=== PATIENT | female | born 1975 | race Caucasian/White ===

== ENCOUNTER 2016-09-03 11:25 | Emergency (ER) | payer SELFPAY ==
[2016-09-03 11:33] VITALS: BP 112/75; PULSE 98; TEMP 98; BMI 25.0
--- NOTE | 2016-09-03 11:51 | PDOC ---
History of Present Illness - General Chief Complaint: Vaginal Sxs Stated Complaint: VAGINAL PROBLEM Time Seen by Provider: 09/03/16 11:50 History Source: Patient Exam Limitations: No Limitations - History of Present Illness Initial Comments: CHIEF COMPLAINT: 41 y/o afebrile female with no significant PMH c/o itchy rash to vaginal area x 5 days. HISTORY OF PRESENT ILLNESS: The patient states about 1 month ago she had unprotected sex with a new partner. She states 5 days ago the rash developed and she admits it's itchy. She states it also fisher at times. She denies all other complaints. Vital signs on arrival are notable for pulse of 98. REVIEW OF SYSTEMS: GENERAL/CONSTITUTIONAL: No fever/chills. No weakness. No weight change. HEAD, EYES, EARS, NOSE AND THROAT: No change in vision. No ear pain or discharge. No sore throat. CARDIOVASCULAR: No chest pain or shortness of breath. RESPIRATORY: No cough, wheezing, or hemoptysis. GASTROINTESTINAL: No abd pain, nausea, vomiting, diarrhea. GENITOURINARY: No dysuria, frequency, or change in urination. MUSCULOSKELETAL: No joint or muscle swelling or pain. No neck or back pain. SKIN: Itchy rash with some burning to vaginal area. NEUROLOGIC: No headache, vertigo, loss of consciousness, or loss of sensation. PHYSICAL EXAM: GENERAL: The patient is awake, alert, and fully oriented, in no acute distress. HEAD: Normal with no signs of trauma. EXTREMITIES: Normal range of motion, no edema. VAGINAL: raised skin colored lesions along b/l labia minora. NEUROLOGICAL: Normal speech, normal gait. CN II-XII grossly intact. SKIN: Similar rash to vaginal rash on soles of feet and along arches of feet. Past History - Past Medical History Allergies/Adverse Reactions: Allergies Allergy/AdvReac Type Severity Reaction Status Date / Time No Known Allergies Allergy Verified 09/03/16 11:29 Home Medications: Ambulatory Orders Doxycycline Hyclate 100 mg PO BID #28 capsule 09/03/16 Valacyclovir HCl [Valtrex -] 1,000 mg PO BID #20 tablet 09/03/16 Asthma: Yes - Psycho/Social/Smoking Cessation Hx Anxiety: No Suicidal Ideation: No Smoking Status: No Smoking History: Never smoked Have you smoked in the past 12 months: Yes Number of Cigarettes Smoked Daily: 10 Information on smoking cessation initiated: No Hx Alcohol Use: No Drug/Substance Use Hx: No Substance Use Type: None *Physical Exam - Vital Signs Last Vital Signs Temp Pulse Resp BP Pulse Ox 98 F 98 H 18 112/75 100 09/03/16 11:30 09/03/16 11:30 09/03/16 11:30 09/03/16 11:30 09/03/16 11:30 Medical Decision Making - Medical Decision Making A/P: 41 y/o afebrile female with genital herpes vs syphillis She states this is the first time she's ever had this. Plan is as follows: 1. hcg 2. Herpes viral culture 3. RPR 4. GC/Chlamydia hcg - negative The patient does not want to wait for RPR result. We will call her with results. In the meantime will treat empirically for herpes. Will call an rx for valtrex for 1st episode of genital herpes. Instructed her to take entire course and no sexual intercourse until valtrex completed. Instructed her that all sexual partners in the future must use protection. Suggested she call Dr. Doran today to schedule a f/u appointment and return to the ER with any worsening or concerning symptoms. The patient verbalizes understanding of all instructions, has no further questions and is awaiting discharge. Lab called and first RPR is Positive Tried calling the patient on the number she provided but her mother informs me that she hasn't spoken to her daughter in months and doesn't think she has a phone. Called the pharmacy where I sent the prescription for valtrex and the patient has not arrived yet to pick it up. I instructed the pharmacist to have the patient call me here before giving her the medication. Sent rx for doxycycline for treatment of syphilis in case the patient does not call back or f/u at the clinic. Spoke with Zoraida at the [facility]. She is at [phone]. She states there is a clinic for free treatment of syphilis at [address] on the 2nd floor in [place]. She states it's open on Mondays and Fridays. She informs me that if they get the official results tomorrow someone from the [facility] will attempt to contact the patient at the address she provided. *DC/Admit/Observation/Transfer Diagnosis at time of Disposition: Herpes genitalis in women - Discharge Dispostion Disposition: HOME Condition at time of disposition: Good - Prescriptions Prescriptions: Doxycycline Hyclate 100 mg PO BID #28 capsule Valacyclovir HCl [Valtrex -] 1,000 mg PO BID #20 tablet - Referrals Referrals: Pam Doran MD [Staff Physician] - Call tomorrow - Patient Instructions Printed Discharge Instructions: DI for Genital Herpes Additional Instructions: Discharge Instructions: -A prescription has been sent to your pharmacy; please start it today and take for entire 10 days -Call Dr. Doran today to schedule a follow up appointment -Do not have sexual intercourse until you are done with your treatment -Make sure all of your sexual partners in the future use protection at all times. -Return to the ER with any worsening or concerning symptoms Print Language: [id number]
== END 2016-09-03 12:56 | disposition home or self-care (01) ==
LOC: JERFT 11:25
DX: A60.04 Herpesviral vulvovaginitis (principal)
CPT/HCPCS: 36415; 84703; 86593; 86780; 87255; 87491; 87591; 99281-25

== ENCOUNTER 2023-11-05 22:39 | Inpatient (IN) | payer OTHER ==
[2023-11-05 23:25] VITALS: BMI 25.4
[2023-11-06] MEDS ORDERED: LOPERAMIDE HCL 2 MG CAPSULE PO PRN (02:13)
[2023-11-06] MEDS ORDERED: NALOXONE HCL 0.4 MG/ML VIAL IM PRN (02:13)
[2023-11-06] MEDS ORDERED: BISMUTH SUBSALICYLATE 524 MG/30 ML PO PRN (02:13)
[2023-11-06] MEDS ORDERED: ONDANSETRON *ODT* 4 MG TABLET SL PRN (02:13)
[2023-11-06] MEDS ORDERED: BENZOCAINE/MENTHOL (CHLORASEPTIC ) LOZENGE MM PRN (02:13)
[2023-11-06] MEDS ORDERED: NALOXONE (NARCAN) HCL 4 MG/0.1 ML SPRAY NS PRN (02:13)
[2023-11-06] MEDS ORDERED: guaiFENesin 600 MG TABLET.ER (FP) PO PRN (02:13)
[2023-11-06] MEDS ORDERED: DICYCLOMINE HCL 10 MG CAPSULE PO PRN (02:13)
[2023-11-06] MEDS ORDERED: POLYETHYLENE GLYCOL (HEALTHYLAX) 3350 17 GM PACKET PO PRN (02:13)
[2023-11-06] MEDS ORDERED: BENZONATATE 200 MG CAPSULE PO PRN (02:13)
[2023-11-06] MEDS: methaDONE HCL 10 MG TABLET (FOR DETOX USE ONLY) PO ONE ×2 (02:54→11:30)
[2023-11-06] MEDS: PRENATAL VITAMINS W/ FOLIC ACID TABLET (FP) PO SCH (10:51)
[2023-11-06] MEDS: METHOCARBAMOL 500 MG TABLET PO PRN (10:51)
[2023-11-06] MEDS: IBUPROFEN 400 MG TABLET (FP) PO PRN (10:51)
[2023-11-06] MEDS: hydrOXYzine PAMOATE 25 MG CAPSULE (FP) PO PRN (10:51)
[2023-11-06] MEDS: cloNIDine HCL 0.1 MG TABLET PO PRN (20:34)
[2023-11-06] MEDS: THIAMINE 100 MG TABLET PO SCH (22:42)
[2023-11-06] MEDS: MELATONIN 5 MG TABLETS PO SCH (22:42)
[2023-11-07] MEDS: IBUPROFEN 600 MG TABLET (FP) PO PRN (03:42)
[2023-11-07 11:37] LABS: HEMOGLOBIN 12.6 GM/dL (10.7-15.3); MCH 28.3 pg (25.7-33.7); MCHC 34.1 g/dl (32.0-36.0); PLATELET COUNT 305 10^3/uL (134-434); RBC 4.46 M/mm3 (3.60-5.2); RDW 16.3 % (11.6-15.6); WHITE BLOOD COUNT 6.1 K/mm3 (4.0-10.0)
[2023-11-07 11:50] LABS: POTASSIUM 3.3 mmol/L (3.5-5.1)
[2023-11-07 12:01] LABS: BILIRUBIN,TOTAL 0.3 mg/dL (0.2-1); TOT PROT 6.3 g/dl (6.4-8.2)
[2023-11-07 12:03] LABS: CREATININE 0.7 mg/dL (0.55-1.3)
[2023-11-07 12:05] LABS: ALBUMIN 2.9 g/dl (3.4-5.0); BLOOD UREA NITROGEN 9.5 mg/dL (7-18); CALCIUM 8.3 mg/dL (8.5-10.1)
[2023-11-07] MEDS: POTASSIUM CHLORIDE ORAL LIQUID 20 MEQ/15 ML PO SCH (15:37)
[2023-11-07] MEDS: methaDONE HCL 10 MG TABLET PO ONE (15:37)
[2023-11-07] MEDS: MELATONIN 5 MG TABLETS PO SCH (22:14)
[2023-11-07] MEDS: ACETAMINOPHEN 325 MG TABLET (FP) PO PRN (22:16)
[2023-11-08] MEDS ORDERED: methaDONE HCL 10 MG TABLET (FOR DETOX USE ONLY) PO ONE (10:00)
[2023-11-08] MEDS: methaDONE 40 MG, methaDONE 10 MG PO ONE (10:36)
[2023-11-08] MEDS: MAG HYDROX/AL HYDROX/SIMETH 30 ML UNIT-DOSE CUP PO PRN (12:43)
[2023-11-08] MEDS: LIDOCAINE 4% PATCH TP SCH (13:30)
[2023-11-08] MEDS: valACYclovir HCL 500 MG TABLET (FP) PO SCH (22:31)
[2023-11-08] MEDS: LIDOCAINE PATCH REMOVAL MC SCH (23:16)
[2023-11-09] MEDS: methaDONE 40 MG, methaDONE 20 MG PO ONE (10:46)
[2023-11-09] MEDS: NICOTINE 14 MG/24 HOURS TOPICAL PATCH TD SCH (10:50)
[2023-11-10] MEDS ORDERED: methaDONE HCL 10 MG TABLET (FOR DETOX USE ONLY) PO ONE (10:00)
[2023-11-10] MEDS: methaDONE 40 MG, methaDONE 30 MG PO ONE (10:32)
[2023-11-10] MEDS: LORATADINE 10 MG TABLET PO SCH (12:06)
[2023-11-10] MEDS: GABAPENTIN 100 MG CAPSULE PO SCH (13:41)
[2023-11-10] MEDS: FLUTICASONE PROP 0.05% 16 GM NASAL SPRAY NS SCH (15:25)
[2023-11-11] MEDS: MAGNESIUM HYDROX 2400MG/30ML ORAL SUSPENSION 30 ML CUP PO PRN (05:00)
[2023-11-11] MEDS: methaDONE HCL 40 MG DISPERSABLE TABLET PO ONE (09:35)
[2023-11-11 10:16] VITALS: BP 114/64; PULSE 70; RESP 16; TEMP 97.7
== END 2023-11-11 12:30 | disposition home or self-care (01) | DRG 773 ==
LOC: YASAS 22:39 → Y6N 11-06 02:26
PROVIDERS: ADMIT Allergy & Immunology; ATTEND Surgery
PROC: HZ2ZZZZ Detoxification Services for Substance Abuse Treatment (ICD-10-PCS; principal; 2023-11-06)
DX: F11.23 Opioid dependence with withdrawal (principal); F14.20 Cocaine dependence, uncomplicated; F12.20 Cannabis dependence, uncomplicated; F31.9 Bipolar disorder, unspecified; F19.282 Other psychoactive substance dependence with psychoactive substance-induced sleep disorder; F19.24 Other psychoactive substance dependence with psychoactive substance-induced mood disorder; F41.9 Anxiety disorder, unspecified; E87.6 Hypokalemia; K59.03 Drug induced constipation; A60.09 Herpesviral infection of other urogenital tract; M79.2 Neuralgia and neuritis, unspecified; R09.81 Nasal congestion; Z62.810 Personal history of physical and sexual abuse in childhood; Z91.410 Personal history of adult physical and sexual abuse; Z63.0 Problems in relationship with spouse or partner; Z63.8 Other specified problems related to primary support group
CPT/HCPCS: 36415; 80053; 80305; 80307; 81025; 84132; 85027; 86593; 86780; 93005; 93010

== ENCOUNTER 2024-03-28 20:46 | Inpatient (IN) | payer OTHER ==
[2024-03-28 21:14] VITALS: BMI 30.7
[2024-03-28] MEDS ORDERED: NICOTINE POLACRILEX 2 MG LOZENGE BC PRN (21:35)
[2024-03-28] MEDS ORDERED: BENZOCAINE/MENTHOL (CHLORASEPTIC ) LOZENGE MM PRN (21:35)
[2024-03-28] MEDS ORDERED: P-EPHED 60MG/TRIPROLIDI 2.5MG TABLET PO PRN (21:35)
[2024-03-28] MEDS ORDERED: MAG HYDROX/AL HYDROX/SIMETH 30 ML UNIT-DOSE CUP PO PRN (21:35)
[2024-03-28] MEDS ORDERED: guaiFENesin 600 MG TABLET.ER (FP) PO PRN (21:35)
[2024-03-28] MEDS ORDERED: BISMUTH SUBSALICYLATE 524 MG/30 ML PO PRN (21:35)
[2024-03-28] MEDS ORDERED: LOPERAMIDE HCL 2 MG CAPSULE PO PRN (21:35)
[2024-03-28] MEDS ORDERED: NALOXONE (NARCAN) HCL 4 MG/0.1 ML SPRAY NS PRN (21:35)
[2024-03-28] MEDS ORDERED: POLYETHYLENE GLYCOL (HEALTHYLAX) 3350 17 GM PACKET PO PRN (21:35)
[2024-03-28] MEDS ORDERED: DICYCLOMINE HCL 10 MG CAPSULE PO PRN (21:35)
[2024-03-28] MEDS ORDERED: NICOTINE POLACRILEX 2 MG GUM BUC PRN (21:35)
[2024-03-28] MEDS ORDERED: BENZONATATE 200 MG CAPSULE PO PRN (21:35)
[2024-03-28] MEDS ORDERED: methaDONE HCL 10 MG TABLET (FOR DETOX USE ONLY) ONE (23:07)
[2024-03-28] MEDS: methaDONE HCL 10 MG TABLET PO ONE (23:11)
[2024-03-29] MEDS: METHOCARBAMOL 500 MG TABLET PO PRN (00:02)
[2024-03-29] MEDS: MELATONIN 5 MG TABLETS PO SCH (00:02)
[2024-03-29] MEDS: THIAMINE 100 MG TABLET PO SCH (00:02)
[2024-03-29] MEDS ORDERED: methaDONE HCL 40 MG DISPERSABLE TABLET PO ONE (10:00)
[2024-03-29] MEDS: PRENATAL VITAMINS W/ FOLIC ACID TABLET (FP) PO SCH (10:20)
[2024-03-29] MEDS: IBUPROFEN 600 MG TABLET (FP) PO PRN (10:26)
[2024-03-29] MEDS: ONDANSETRON *ODT* 4 MG TABLET SL PRN (10:27)
[2024-03-29 13:03] LABS: CHLORIDE 110 mmol/L (98-107); POTASSIUM 4.1 mmol/L (3.5-5.1); SODIUM 144 mmol/L (136-145)
[2024-03-29 13:05] LABS: ALBUMIN 3.4 g/dl (3.4-5.0); ANION GAP 6 mmol/L (4-13); BLOOD UREA NITROGEN 22.5 mg/dL (7-18); CALCIUM 8.6 mg/dL (8.5-10.1); CO2 28 mmol/L (21-32); GLUCOSE,RANDOM 92 mg/dL (74-106)
[2024-03-29 13:06] LABS: HEMATOCRIT 38.4 % (32.4-45.2); HEMOGLOBIN 12.8 GM/dL (10.7-15.3); MCHC 33.2 g/dl (32.0-36.0); MEAN CELL VOLUME 87.2 fl (80-96); MEAN PLT VOLUME 9.1 fl (7.5-11.1); PLATELET COUNT 266 10^3/uL (134-434); RBC 4.41 M/mm3 (3.60-5.2); RDW 15.3 % (11.6-15.6); WHITE BLOOD COUNT 6.7 K/mm3 (4.0-10.0)
[2024-03-29 13:08] LABS: CREATININE 0.7 mg/dL (0.55-1.3); SGOT/AST 13 U/L (15-37); SGPT/ALT 23 U/L (13-61)
[2024-03-29 13:10] LABS: BILIRUBIN,TOTAL 0.2 mg/dL (0.2-1); TOT PROT 6.8 g/dl (6.4-8.2)
[2024-03-29 13:11] LABS: ALK PHOS 132 U/L (45-117)
[2024-03-29] MEDS: SERTRALINE HCL 50 MG TABLET (FP) PO SCH (13:38)
[2024-03-29] MEDS: GABAPENTIN 300 MG CAPSULE PO SCH (13:38)
[2024-03-29] MEDS: NICOTINE 7 MG/24 HOURS TOPICAL PATCH TD SCH (13:53)
[2024-03-29] MEDS: LIDOCAINE 5% TOPICAL PATCH TP SCH (13:53)
[2024-03-29 13:58] LABS: HIV INTERPRETATION NEGATIVE (NEGATIVE)
[2024-03-29] MEDS: FAMOTIDINE 20 MG TABLET PO SCH (17:56)
[2024-03-29] MEDS: LIDOCAINE PATCH REMOVAL MC SCH (22:04)
[2024-03-30] MEDS: methaDONE HCL 40 MG DISPERSABLE TABLET PO ONE (09:06)
[2024-03-30] MEDS: cloNIDine HCL 0.1 MG TABLET PO PRN (09:48)
[2024-03-30] MEDS: MAGNESIUM HYDROX 2400MG/30ML ORAL SUSPENSION 30 ML CUP PO PRN (11:31)
[2024-03-30] MEDS: FLU VACCINE (FLULAVAL) PF 45 MCG/0.5 ML SYRINGE 2024-2025 IM ONE (12:32)
[2024-03-30] MEDS: amLODIPine BESYLATE 5 MG TABLET (FP) PO SCH (15:33)
[2024-03-30] MEDS: DOCUSATE SODIUM 100 MG CAPSULE (FP) PO PRN (22:56)
[2024-03-30] MEDS: SUVOREXANT 10 MG TABLET PO PRN (22:56)
[2024-03-31] MEDS: ACETAMINOPHEN 325 MG TABLET (FP) PO PRN (05:57)
[2024-03-31] MEDS: IBUPROFEN 400 MG TABLET (FP) PO PRN (09:35)
[2024-03-31] MEDS ORDERED: methaDONE HCL 40 MG DISPERSABLE TABLET PO ONE (10:00)
[2024-03-31] MEDS: NALOXONE (NYS OPIOID OVERDOSE PROGRAM) 4 MG/0.1 ML SPRAY NS SCH (10:38)
[2024-04-01 09:11] VITALS: BP 143/91; PULSE 74; RESP 16; TEMP 97.6
[2024-04-01] MEDS ORDERED: methaDONE HCL 40 MG DISPERSABLE TABLET PO ONE (10:00)
== END 2024-04-01 10:38 | disposition home or self-care (01) | DRG 773 ==
LOC: YASAS 20:46 → Y6N 22:15
PROVIDERS: ADMIT Allergy & Immunology; ATTEND Surgery
PROC: HZ2ZZZZ Detoxification Services for Substance Abuse Treatment (ICD-10-PCS; principal; 2024-03-28)
DX: F11.23 Opioid dependence with withdrawal (principal); F14.20 Cocaine dependence, uncomplicated; F12.20 Cannabis dependence, uncomplicated; F17.210 Nicotine dependence, cigarettes, uncomplicated; F19.282 Other psychoactive substance dependence with psychoactive substance-induced sleep disorder; F19.24 Other psychoactive substance dependence with psychoactive substance-induced mood disorder; F31.9 Bipolar disorder, unspecified; I10 Essential (primary) hypertension; J45.909 Unspecified asthma, uncomplicated; K21.9 Gastro-esophageal reflux disease without esophagitis; Z86.19 Personal history of other infectious and parasitic diseases; Z62.810 Personal history of physical and sexual abuse in childhood; Z91.410 Personal history of adult physical and sexual abuse
CPT/HCPCS: 36415; 80053; 80305; 80307; 81025; 85027; 86593; 86780; 87389; 87522; 90656; G0008; Q0162

== ENCOUNTER 2024-04-02 13:37 | Emergency (ER) | payer OTHER ==
[2024-04-02 13:54] VITALS: BP 109/70; PULSE 77; RESP 20; TEMP 98.7; BMI 32.3
[2024-04-02] MEDS ORDERED: MAG HYDROX/AL HYDROX/SIMETH 30 ML UNIT-DOSE CUP ONE (14:33)
[2024-04-02] MEDS ORDERED: FAMOTIDINE 20 MG/50 ML IVPB 20 MG/50 ML MG IVPB ONE (14:33)
[2024-04-02] MEDS ORDERED: ACETAMINOPHEN INJECTION 100 ML ONE (14:33)
[2024-04-02] MEDS ORDERED: ONDANSETRON 4 MG/2 ML VIAL ONE (14:33)
[2024-04-02] MEDS: SODIUM CHLORIDE 0.9% 500 ML INFUS.BAG IV ONE (15:08)
[2024-04-02] MEDS: FAMOTIDINE 20 MG/50 ML IVPB 20 MG/50 ML MG IVPB ONE (15:09)
[2024-04-02] MEDS: ACETAMINOPHEN 1000 MG/100 ML BAG IVPB ONE (15:09)
[2024-04-02] MEDS: ONDANSETRON 4 MG/2 ML VIAL IVPUSH ONE (15:09)
[2024-04-02] MEDS: MAG HYDROX/AL HYDROX/SIMETH 30 ML UNIT-DOSE CUP PO ONE (15:09)
[2024-04-02 15:25] LABS: URINE BILIRUBIN NEGATIVE (NEGATIVE); URINE COLOR YELLOW; URINE GLUCOSE (UA) NEGATIVE (NEGATIVE); URINE KETONE NEGATIVE (NEGATIVE); URINE LEUK ESTERASE NEGATIVE (NEGATIVE); URINE NITRITE NEGATIVE (NEGATIVE); URINE PROTEIN NEGATIVE (NEGATIVE)
[2024-04-02 15:27] LABS: BASO % 0.2 % (0-2.0); EOS % 1.9 % (0-4.5); HEMATOCRIT 41.3 % (32.4-45.2); HEMOGLOBIN 13.4 GM/dL (10.7-15.3); MCH 28.6 pg (25.7-33.7); MCHC 32.4 g/dl (32.0-36.0); MEAN CELL VOLUME 88.1 fl (80-96); MEAN PLT VOLUME 8.4 fl (7.5-11.1); MONO % 4.9 % (3.8-10.2); PLATELET COUNT 297 10^3/uL (134-434); RBC 4.69 M/mm3 (3.60-5.2); RDW 14.9 % (11.6-15.6); WHITE BLOOD COUNT 6.9 K/mm3 (4.0-10.0)
[2024-04-02 15:33] LABS: INR 0.99 (0.83-1.09); PROTHROMBIN TIME (PATIENT) 11.2 SEC (9.7-13.0)
[2024-04-02 15:36] LABS: ACTIVATED PTT 28.6 SECONDS (25.2-36.5)
[2024-04-02 15:43] LABS: POTASSIUM 4.3 mmol/L (3.5-5.1)
[2024-04-02 15:44] LABS: URINE APPEARANCE CLEAR
[2024-04-02 15:45] LABS: ALBUMIN 3.6 g/dl (3.4-5.0); BLOOD UREA NITROGEN 13.6 mg/dL (7-18); CALCIUM 9.1 mg/dL (8.5-10.1)
[2024-04-02 15:48] LABS: CREATININE 0.6 mg/dL (0.55-1.3)
[2024-04-02 15:50] LABS: BILIRUBIN,TOTAL 0.3 mg/dL (0.2-1); TOT PROT 7.4 g/dl (6.4-8.2)
== END 2024-04-02 18:00 | disposition home or self-care (01) ==
LOC: JER 13:37
PROC: 3E033GC Introduction of Other Therapeutic Substance into Peripheral Vein, Percutaneous Approach (ICD-10-PCS; principal; 2024-04-02)
PROC: 3E033NZ Introduction of Analgesics, Hypnotics, Sedatives into Peripheral Vein, Percutaneous Approach (ICD-10-PCS; 2024-04-02)
PROC: 3E033GC Introduction of Other Therapeutic Substance into Peripheral Vein, Percutaneous Approach (ICD-10-PCS; 2024-04-02)
DX: R10.13 Epigastric pain (principal); R11.2 Nausea with vomiting, unspecified; Z20.822 Contact with and (suspected) exposure to COVID-19
CPT/HCPCS: 0241U-QW; 36415; 71046-TC-FY; 74177-TC; 76705-TC; 80053; 81003; 83690; 84484; 85025; 85610; 85730; 86850; 86900; 86901; 87086; 93005; 93010; 99285-25; J0131